=== PATIENT | male | born 1960 | race Caucasian/White ===

== ENCOUNTER 2022-05-18 08:16 | Outpatient (CLI) | payer OTHER, SELFPAY | END 2022-05-18 08:17 | disposition home or self-care (01) | LOC: NFLDREF 05-19 06:36 | PROVIDERS: PCP Family Medicine; Referring Provider Family Medicine; Visit Provider Family Medicine | DX: E78.5 Hyperlipidemia, unspecified (principal); Z12.5 Encounter for screening for malignant neoplasm of prostate | CPT/HCPCS: 80053; 80061; 84153 ==

== ENCOUNTER 2022-10-18 07:16 | Outpatient (CLI) | payer OTHER, SELFPAY ==
--- NOTE | 2022-10-18 08:41 | W.ANESCHARGE ---
Anesthesia Charges Start Date/Time Anesthesia Start Date: 10/18/22 Anesthesia Start Time: 07:59 Stop Date/Time Anesthesia Stop Date: 10/18/22 Anesthesia Stop Time: 08:37
--- NOTE | 2022-10-18 08:43 | W.ANESCHARGE ---
Anesthesia Charges Start Date/Time Anesthesia Start Date: 10/18/22 Anesthesia Start Time: 07:59 Stop Date/Time Anesthesia Stop Date: 10/18/22 Anesthesia Stop Time: 08:37
== END 2022-10-18 07:17 | disposition home or self-care (01) ==
LOC: OP CLINIC 07:17
PROVIDERS: PCP Family Medicine; Visit Provider Surgery
DX: Z12.11 Encounter for screening for malignant neoplasm of colon (principal); K64.9 Unspecified hemorrhoids; K63.5 Polyp of colon
CPT/HCPCS: 00811; 45385; 88305; J2704

== ENCOUNTER 2023-07-24 07:52 | Outpatient (CLI) | payer OTHER, SELFPAY | END 2023-07-24 07:53 | disposition home or self-care (01) | LOC: NFLDREF 07-27 20:24 | PROVIDERS: PCP Family Medicine; Referring Provider Family Medicine; Visit Provider Family Medicine | DX: E78.5 Hyperlipidemia, unspecified (principal); Z12.5 Encounter for screening for malignant neoplasm of prostate | CPT/HCPCS: 80053; 80061; G0103 ==

== ENCOUNTER 2023-09-30 14:22 | Outpatient (CLI) | payer OTHER, SELFPAY ==
--- OUTSIDE RECORDS SUMMARY | 2023-09-30 14:23 | XMS_ITS | Clinical Summary ---
Author Organization [facility] Address [place], [place] [address] Care Team Providers Care Deadener Name Role Phone Clinic, [facility] r Allergies No known active allergies Medications Medication Sig Dispensed Refills Start Date End Date Status sildenafil citrate (VIAGRA) 100 mg tabletIndications:ED (erectile dysfunction) Take 1 tablet by mouth once daily if needed for Erectile Dysfunction. Take 30min to 4 hours before sexual activity. Max 100mg/24hr. 12 tablet 5 05/23/2011 Active Active Problems Problem Noted Date Diagnosed Date Vitamin D deficiency 06/14/2010 ED (erectile dysfunction) 06/01/2010 Immunizations Name Administration Dates Next Due Influenza, IIV3 (Age >=3 years) 11/25/2008 Tdap 06/01/2010,02/12/2000,08/05/1997 Family History Medical History Relation Name Comments Good Health Brother 4 Alcohol/Drug Brother 5 Alcohol/Drug Brother 6 Cancer Father Diabetes Father Heart Disease Father Heart Disease Maternal Grandfather Good Health Mother Good Health Sister 2 Relation Name Status Comments Brother 1 Alive Brother 2 Alive Brother 3 Alive Brother 4 Brother 5 Brother 6 Father (Age 69) brain Maternal Grandfather Maternal Grandmother Mother Alive Paternal Grandfather Paternal Grandmother Sister 1 Alive Sister 2 Social History Tobacco Use Types Packs/Day Years Used Date Smoking Tobacco: Never Smokeless Tobacco: Never Alcohol Use Standard Drinks/Week Comments Yes 0 (1 standard drink = 0.6 oz pur e alcohol) rare Sex and Gender Information Value Date Recorded Sex Assigned at Not on file Gender Identity Not on file Sexual Orientation Not on file Obstetrics History Last Filed Vital Signs Vital Sign Reading Time Taken Comments Blood Pressure 122/80 01/18/2011 1:07 PM CLIENT ANALYST Pulse 76 01/18/2011 1:07 PM CLIENT ANALYST Temperature 36.3 ??C (97.4 ??F) 01/18/2011 1:07 PM CS T Respiratory Rate 20 01/18/2011 1:07 PM CLIENT ANALYST Oxygen Saturation 96% 07/03/2010 3:33 PM CDT Inhaled Oxygen Concentration - - Weight 89.4 kg (197 lb) 01/18/2011 1:07 PM CLIENT ANALYST Height 174 cm (5' 8.5) 07/03/2010 3:33 PM CDT Body Mass Index 29.52 07/03/2010 3:33 PM CDT Plan of Treatment Upcoming Encounters Date Type Department Care Team (Late st Contact Info) Description 09/30/2023 2:30 PM CDT Orders Only [facility] [address] [place] [address] Arrived Health Maintenance Due Date Last Done Comments Depression screening for age 12+ 1971 HIV for age 15-65 05/13/1974 BMI (ht and wt on same day) for age 18+ 05/13/1977 Hepatitis C screening for ag e 18-79 05/13/1977 Colonoscopy through age 75 05/13/2004 Zoster (shingles) series for age 50+ (1 of 2) 05/13/2009 Lipids for age 45-75 06/10/2015 06/09/2010, 07/01/2009 Tetanus booster 06/01/2020 06/01/2010, 02/12/2000, 08/05/1997 COVID-19 vaccine series (2022-24 season) 2022 Influenza for age 50-64 10/13/2023 11/25/2008 Tdap Completed 06/01/2010, 02/12/2000, 08/05/1997 Pneumococcal series for age 6-64 Aged Out No longer eligible b ased on patient's age to complete this topic Procedures Procedure Name Priority Date/Time Associated Diagnosis Comments LIPID PANEL W REFLEX MEASURED LDL Routine 06/09/2010 8:36 AM CDT Screening for lipoid disorders from Last 3 Months or Most Recently Relevant to Health Maintenance Results * LIPID PANEL W REFLEX MEASURED LDL (06/09/2010 8:36 AM CDT) CHOLESTEROL,TOTAL 186 110 - 199 mg/dL [facility] TRIGLYCERIDES 136 40 - 149 mg/dL [facility] HDL CHOLESTEROL 45 >40 mg/dL [facility] CHOL/HDL RATIO 4.13 <4.51 [facility] LDL CHOLESTEROL 114 <131 mg/dL [facility] PATIENT STATUS Fasting [facility] Blood specimen (specimen) BLOOD SPECIMEN / Unknown 06/09/2010 8:36 AM CDT 06/09/2010 8:29 AM CDT Magan Cisse DO CHEMISTRY [facility] [place]NAL ZIP [address] [place] [id number] from Last 3 Months or Most Recently Relevant to Health Maintenance Care Teams Deadener Relationship Specialty Start Date End Date Clinic, [facility] [address] [place] [id number] PCP - General 04/29/09
== END 2023-09-30 14:23 | disposition home or self-care (01) ==
LOC: US 14:22
PROVIDERS: PCP Family Medicine; Visit Provider Surgery
DX: I83.893 Varicose veins of bilateral lower extremities with other complications (principal); I87.2 Venous insufficiency (chronic) (peripheral)
CPT/HCPCS: 93970

== ENCOUNTER 2024-09-11 11:00 | Outpatient (CLI) | payer MEDICARE, BC, SELFPAY | END 2024-09-11 11:01 | disposition home or self-care (01) | LOC: NFLDREF 09-16 11:26 | PROVIDERS: PCP Family Medicine; Referring Provider Family Medicine; Visit Provider Family Medicine | DX: E78.5 Hyperlipidemia, unspecified (principal); Z12.5 Encounter for screening for malignant neoplasm of prostate | CPT/HCPCS: 80053; 80061; G0103 ==